=== PATIENT | female | born 1990 | race Caucasian/White ===

== ENCOUNTER 2021-07-27 10:42 | Emergency (ER) | payer SELFPAY ==
[~2021-07-27 10:42] MED LIST: KEFLEX500 MG PO
[2021-07-27 11:42] LABS: HEMOGLOBIN 13.1 gm/dl (12.3-15.3); RED BLOOD COUNT 4.38 M/UL (4.00-5.10); WHITE BLOOD COUNT 9.6 K/UL (4.5-11.0)
[2021-07-27 12:12] LABS: BUN/CREATININE RATIO 13 (0-10)
== END 2021-07-27 15:30 | disposition home or self-care (01) ==
LOC: ER1 10:42
PROVIDERS: Nurse Practitioner
DX: R07.89 Other chest pain (principal); Z20.822 Contact with and (suspected) exposure to COVID-19
CPT/HCPCS: 0240U; 71045; 80053; 80307; 81001; 82550; 82553; 83735; 84439; 84443; 84484; 84703; 85025; 85379; 93005; 99284; J7030